=== PATIENT | female | born 1965 | race Hispanic/Latino ===

== ENCOUNTER 2017-05-18 21:58 | Emergency (ER) | payer BC, OTHER ==
[2017-05-18] MEDS ORDERED: Acetaminophen 500 MG TAB ONE (22:14)
[2017-05-18] MEDS ORDERED: Amoxicillin/Potassium Clav 875 MG TAB ONE (23:01)
--- NOTE | 2017-05-18 23:14 | RAD ---
CHEST PA AND LATERAL: History: 52-year-old female with history of cough and congestion for one week. FINDINGS: There is some mild bilateral vascular congestion. There is some increased linear and interstitial mar kings in the lung bases. Inspiration is suboptimal. This may just represent some vascular crowding or could be related to some subsegmental atelectasis or even chronic changes in the basis. No confluent process. IMPRESSION: Suboptimal inspiration with some linear and parenchymal changes in the bases with possibilities inclu ding that of subsegmental atelectasis, mild pneumonitis or chronic change. No significant focal confl uent process. Atherosclerosis of the aorta with ectasia. POS: [facility]
== END 2017-05-18 23:09 | disposition home or self-care (01) ==
LOC: NAV ERS 21:58
DX: J06.9 Acute upper respiratory infection, unspecified (principal); I10 Essential (primary) hypertension; M19.90 Unspecified osteoarthritis, unspecified site
CPT/HCPCS: 71020